=== PATIENT | male | born 1995 | race Caucasian/White ===

== ENCOUNTER 2018-09-27 12:20 | Emergency (ER) | payer SELFPAY ==
[2018-09-27 12:26] VITALS: BP 113/83; PULSE 68; RESP 20; TEMP 97.8; O2SAT 96
--- NOTE | 2018-09-27 12:36 | C.PDOC ---
History Of Present Illness 23 year old male presents to the ED for suture removal on his right eyebrow obtained on 09/22/18 status post syncopal episode. Denies any fever, chills, drainage, swelling, headache, dizziness or any other physical complaints. Time Seen by Provider: 09/27/18 12:34 Chief Complaint (Nursing): Suture/Staple Removal History Per: Patient History/Exam Limitations: no limitations Onset/Duration Of Symptoms: Days Ago Current Symptoms Are (Timing): Gone Location Of Injury: Right: Head (suture removal on right eyebrow ) Past Medical History Reviewed: Historical Data, Nursing Documentation, Vital Signs Vital Signs: Last Vital Signs Temp 97.8 F 09/27/18 12:23 Pulse 68 09/27/18 12:23 Resp 20 09/27/18 12:23 BP 113/83 09/27/18 12:23 Pulse Ox 96 09/27/18 12:23 Primary Care Provider: FAMILY PROVIDER,NO - Medical History PMH: No Chronic Diseases Surgical History: No Surg Hx Family History: States: No Known Family Hx - Social History Hx Alcohol Use: Yes Hx Substance Use: No - Immunization History Hx Tetanus Toxoid Vaccination: Yes (2019) Hx Influenza Vaccination: No Hx Pneumococcal Vaccination: No Review Of Systems Constitutional: Negative for: Fever, Chills Skin: Positive for: Other (suture removal ) Physical Exam - Physical Exam Appears: Non-toxic, No Acute Distress Skin: Warm, Dry, No Rash Head: Normacephalic, Other (well healed incision on right eyebrow, 5 sutures present, no erythema, no drainage, no swelling, no signs of infection ) Neck: Supple Chest: Symmetrical Cardiovascular: Rhythm Regular Respiratory: Other (CTA B/L) Neurological/Psych: Oriented x3, Normal Speech Gait: Steady ED Course And Treatment O2 Sat by Pulse Oximetry: 96 (RA) Pulse Ox Interpretation: Normal Medical Decision Making Medical Decision Makin sutures removal done; well healing incision. d/c home., Disposition Counseled Patient/Family Regarding: Diagnosis, Need For Followup - Disposition Referrals: [employer] [facility] [Outside] [facility] [Outside] Disposition: HOME/ ROUTINE Disposition Time: 13:01 Condition: GOOD Additional Instructions: Follow up in medical clinic. Call fire control mechanic service for assistance making appointment. Wash face gently and pat dry. Apply sunscreen to incision site when in sun. Instructions: Stitches Removal Forms: [facility] (Mauritanian), General Discharge Instructions - Clinical Impression Clinical Impression: Removal of suture - PA / SHIP SUPERINTENDENT / Resident Statement MD/DO has reviewed & agrees with the documentation as recorded. - Scribe Statement The provider has reviewed the documentation as recorded by the Scribe Judy Rosas All medical record entries made by the Scribe were at my direction and personally dictated by me. I have reviewed the chart and agree that the record accurately reflects my personal performance of the history, physical exam, medical decision making, and the department course for this patient. I have also personally directed, reviewed, and agree with the discharge instructions and disposition.
== END 2018-09-27 13:13 | disposition home or self-care (01) ==
LOC: C.ER 12:20
DX: S01.111D Laceration without foreign body of right eyelid and periocular area, subsequent encounter (principal)